=== PATIENT | female | born 1995 | race Caucasian/White ===

== ENCOUNTER 2017-07-04 11:42 | Emergency (ER) | payer OTHER ==
[~2017-07-04] VITALS: Ht 170.2 cm; Wt 68.2 kg
[~2017-07-04 11:42] MED LIST: LAMI25TA3 PO; LEVE250 OR
[2017-07-04 11:59] VITALS: BP 144/90; PULSE 114; RESP 18; TEMP 98.3; O2SAT 98
[2017-07-04] MEDS ORDERED: MIDAZOLAM HCL 5 MG/5 ML VIAL IV PUSH ONE (12:45)
--- NOTE | 2017-07-04 12:49 | PD ---
HPI Chief Complaint: Injury Time Seen by Provider: 12:32 Travel History International Travel<30 days: No Contact w/Intl Traveler<30days: No Traveled to known affect area: No History of Present Illness HPI Patient states that as she reached over to grab something she felt the right shoulder pain immediately and was unable to move her shoulder about. 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 Patient comes in with x-rays showing an anterior shoulder dislocation without fracture. History of seizures, depot shot has not had any regular menses. PFSH Past Medical History Autoimmune Disease: No Anxiety: No Depression: No Cardiovascular Problems: No Diabetes: No Diminished Hearing: No Genitourinary: No Musculoskeletal: No Neurologic: No Psychiatric: No Respiratory: No Immunizations Current: Yes Seizures: Yes ?: Not LMP: on Depo Social History Alcohol Use: No Tobacco Use: No Substance Use: No Allergies-Medications (Allergen,Severity, Reaction): Coded Allergies: carbamazepine (Verified Allergy, Unknown, 07/04/17) Reported Meds & Prescriptions Reported Meds & Active Scripts Active Review of Systems General / Constitutional: No: Fever Eyes: No: Visual changes HENT: No: Headaches Cardiovascular: No: Chest Pain or Discomfort Respiratory: No: Shortness of Breath Gastrointestinal: No: Abdominal Pain Genitourinary: No: Dysuria Musculoskeletal: Positive: Limited ROM, Pain Skin: No Rash Neurologic: No: Weakness Psychiatric: No: Depression Endocrine: No: Polydipsia Hematologic/Lymphatic: No: Easy Bruising Physical Exam Narrative GENERAL: SKIN: Warm and dry. HEAD: Atraumatic. Normocephalic. EYES: Pupils equal and round. No scleral icterus. No injection or drainage. ENT: No nasal bleeding or discharge. Mucous membranes pink and moist. NECK: Trachea midline. No JVD. CARDIOVASCULAR: Regular rate and rhythm. RESPIRATORY: No accessory muscle use. Clear to auscultation. Breath sounds equal bilaterally. GASTROINTESTINAL: Abdomen soft, non-tender, nondistended. MUSCULOSKELETAL: Extremities without clubbing, cyanosis, or edema. No obvious deformities. NEUROLOGICAL: Awake and alert. No obvious cranial nerve deficits. Motor grossly within normal limits. Five out of 5 muscle strength in the arms and legs. Normal speech. PSYCHIATRIC: Appropriate mood and affect; insight and judgment normal. Data Data Last Documented VS Orders Orders Shoulder, Limited(2vws) (07/04/17 12:40) Iv Access Insert/Monitor (07/04/17 12:40) Ecg Monitoring (07/04/17 12:40) Oximetry (07/04/17 12:40) Fentanyl Inj (Fentanyl Inj) (07/04/17 12:45) Midazolam Inj (Versed Inj) (07/04/17 12:45) Midazolam Inj (Versed Inj) (07/04/17 12:55) Shoulder, One View (07/04/17 13:24) Ondansetron Inj (Zofran Inj) (07/04/17 14:00) Ed Discharge Order (07/04/17 14:16) Sling And Swathe (07/04/17 ) [facility] Medical Decision Making Medical Screen Exam Complete: Yes Emergency Medical Condition: Yes Medical Record Reviewed: Yes Differential Diagnosis Right shoulder dislocation versus subluxation versus fracture Narrative Course first xrya showed dislcoation without fracture...repeat xray showed successful closed reduction of anterior dislocation Procedures Procedure Narrative After the risks and benefits were discussed the following procedure was performed: MODERATE SEDATION: The patient was placed on a nuclear monitoring technician and pulse oximetry. An ambu bag and suction was immediately available at bedside. The patient was monitored by the nurse. Oxygen saturation, heart rate and blood pressure were monitored. Procedural sedation was acheived using [fentanyl Versed ] . The patient was observed until awake and alert. Procedural Sedation time in attendance was [30] minutes. Using passive external rotation and traction, closed manual reduction performed on right shoulder.... Neurovascular intact, pulses present and strong 3+ on radial and ulnar as well as brachial pulses Diagnosis Primary Impression: Right shoulder dislocation status post close reduction Patient Instructions: General Instructions, Shoulder Dislocation (ED), Shoulder Dislocation Exercises (GEN) Disposition: 01 DISCHARGE HOME Condition: Stable Galen Webster MD Jul 04, 2017 12:49
[2017-07-04] MEDS ORDERED: MIDAZOLAM HCL 5 MG/ML VIAL (1 ML) ONE (12:55)
[2017-07-04 13:04] VITALS: O2SAT 99
--- NOTE | 2017-07-04 13:11 | RADRPT ---
EXAM DATE/TIME: 07/04/2017 12:56 [facility] COMPARISON: No previous studies available for comparison. INDICATIONS : Right shoulder pain, shoulder dislocated today. MEDICAL HISTORY : many right shoulder dislocations over the last 2 years. SURGICAL HISTORY : None. ENCOUNTER: Initial ACUITY: 1 day PAIN SCORE: 10/10 LOCATION: Right shoulder. FINDINGS: Anterior-inferior dislocation right shoulder without fracture. An apex clear. CONCLUSION: Anterior-inferior dislocation Salbador Thompson MD FACR on July 04, 2017 at 13:09 Board Certified Radiologist. This report was verified electronically.
[2017-07-04] MEDS ORDERED: ONDANSETRON HCL 4 MG/2 ML VIAL IV PUSH ONE (14:00)
--- NOTE | 2017-07-04 14:05 | RADRPT ---
EXAM DATE/TIME: 07/04/2017 13:32 [facility] COMPARISON: No previous studies available for comparison. INDICATIONS : Post reduction, right shoulder. MEDICAL HISTORY : None. SURGICAL HISTORY : None. ENCOUNTER: Initial ACUITY: 1 day PAIN SCORE: Non-responsive. LOCATION: Right shoulder FINDINGS: Examination of the right shoulder demonstrates no evidence of fracture or dislocation.. Bone mineral ization is normal. The acromioclavicular joint is intact. No foreign body is identified. CONCLUSION: Anatomic alignment no fracture. Salbador Thompson MD FACR on July 04, 2017 at 14:02 Board Certified Radiologist. This report was verified electronically.
[2017-07-04 14:26] VITALS: BP 128/72; PULSE 120; RESP 18; O2SAT 98
== END 2017-07-04 14:55 | disposition home or self-care (01) ==
LOC: NEPD 11:42
DX: S43.004A Unspecified dislocation of right shoulder joint, initial encounter (principal); X50.0XXA Overexertion from strenuous movement or load, initial encounter
CPT/HCPCS: 23650; 73020; 73030; 96374; 99152; 99284; J2250; J2405; J3010